=== PATIENT | male | born 2000 | race Caucasian/White ===

== ENCOUNTER 2024-07-26 15:03 | Emergency (ER) | payer OTHER ==
[~2024-07-26] VITALS: Ht 180.3 cm; Wt 89.5 kg
[2024-07-26] MEDS: ACETAMINOPHEN 325 MG TAB PO ONE (20:23)
[2024-07-26 21:45] VITALS: BP 127/80; TEMP 96.5; O2SAT 100
== END 2024-07-26 21:49 | disposition home or self-care (01) ==
LOC: M ED 15:03
DX: S06.0X0A Concussion without loss of consciousness, initial encounter (principal); Y92.9 Unspecified place or not applicable; Y93.9 Activity, unspecified; Y99.9 Unspecified external cause status; W01.198A Fall on same level from slipping, tripping and stumbling with subsequent striking against other object, initial encounter